=== PATIENT | female | born 1955 | race Caucasian/White ===

== ENCOUNTER → 2018-12-19 | Outpatient (CLI) | payer OTHER, BC ==
[~2018-12-19] MED LIST: APIX5TAB PO; FLEC100T PO; IBUP1TAB11 PO; METO25TA35 PO; METO25TA91 PO; OMNIPAQUE 350 MG/ML, 150 ML BOTTLE ONE
== END | disposition home or self-care (01) ==
LOC: CFH 12:37
PROVIDERS: ATTEND Internal Medicine Cardiovascular Disease
DX: I48.0 Paroxysmal atrial fibrillation (principal); Z79.899 Other long term (current) drug therapy
CPT/HCPCS: 71046; 75572; Q9967

== ENCOUNTER 2018-12-22 06:31 | Observation (INO) | payer OTHER, BC ==
[2018-12-19 14:21] VITALS: BP 119/80
[2018-12-19 14:49] LABS: BASOPHILS # (AUTO) 0.05 x10^3/uL (0-0.1); BASOPHILS % (AUTO) 1 % (0-1); EOSINOPHILS # (AUTO) 0.09 x10^3/uL (0-0.4); EOSINOPHILS % (AUTO) 2 % (1-7); LYMPHOCYTES % (AUTO) 25 % (22-44); MD NO; MEAN CORPUSCULAR HEMOGLOBIN 30.6 pg (27.0-34.8); MEAN CORPUSCULAR HGB CONC 33.9 g/dL (32.4-35.8); MEAN CORPUSCULAR VOLUME 90.3 fL (80-100); MEAN PLATELET VOLUME 8.1 fL (7.4-10.4); MONOCYTES # (AUTO) 0.32 x10^3/uL (0.2-0.8); MONOCYTES % (AUTO) 7 % (2-9); NEUTROPHILS % (AUTO) 66 % (42-75); PLATELET COUNT 259 x10^3/uL (130-400); RED BLOOD COUNT 4.66 x10^6/uL (3.82-5.3); RED CELL DISTRIBUTION WIDTH 13.3 % (9.6-15.2)
[2018-12-19 14:57] LABS: ALBUMIN 3.6 g/dL (3.4-5.0); ANION GAP 4 mmol/L (5-15); CALCIUM 8.7 mg/dL (8.5-10.1); CHLORIDE 110 mmol/L (98-107)
[2018-12-19 15:01] LABS: ALANINE AMINOTRANSFERASE 18 U/L (12-78); ALKALINE PHOSPHATASE 81 U/L (45-117); BILIRUBIN,TOTAL 0.7 mg/dL (0.2-1.0); CREATININE 1.03 mg/dL (0.55-1.02); TOTAL PROTEIN 6.7 g/dL (6.4-8.2)
[~2018-12-22] VITALS: Ht 175.3 cm; Wt 109.1 kg
[~2018-12-22 06:31] MED LIST changes: -APIX5TAB PO; -OMNIPAQUE 350 MG/ML, 150 ML BOTTLE ONE
[2018-12-22] MEDS ORDERED: SODIUM CHLORIDE 0.9% 1,000 ML IV SCH ×2 (06:48→07:00)
[2018-12-22] MEDS ORDERED: LIDOCAINE 1%, 20ML ONE (07:09)
[2018-12-22] MEDS ORDERED: FENTANYL PF 250 MCG/5ML ONE (08:43)
[2018-12-22] MEDS ORDERED: MIDAZOLAM 1 MG/ML, 2ML ONE (08:43)
[2018-12-22] MEDS ORDERED: ONDANSETRON 2MG/ML, 2ML ONE ×2 (08:46→16:10)
[2018-12-22] MEDS ORDERED: PROPOFOL 10 MG/ML, 20ML ONE (08:46)
[2018-12-22] MEDS ORDERED: DEXAMETHASONE 4 MG/ML, 5ML ONE (08:46)
[2018-12-22] MEDS ORDERED: SUCCINYLCHOLINE 20 MG/ML, 10ML ONE (08:47)
[2018-12-22] MEDS ORDERED: VASOPRESSIN 20 UNIT/ML, 1ML ONE (10:59)
[2018-12-22] MEDS ORDERED: ACETAMINOPHEN 325 MG TABLET PO PRN (13:00)
[2018-12-22] MEDS ORDERED: hydrALAzine 20 MG/ML, 1ML IV PRN (13:00)
[2018-12-22] MEDS ORDERED: MIDAZOLAM 1 MG/ML, 2ML IV PRN (13:00)
[2018-12-22] MEDS ORDERED: DIAZEPAM 5 MG/ML, 2ML IVPush PRN (13:00)
[2018-12-22] MEDS ORDERED: METOPROLOL SUCCINATE 25 MG TAB.ER.24H PO PRN (13:00)
[2018-12-22] MEDS ORDERED: MEPERIDINE/PF 25MG/0.5ML IVPush PRN (13:00)
[2018-12-22] MEDS ORDERED: EPHEDRINE 50 MG/ML, 1ML IVPush PRN (13:00)
[2018-12-22] MEDS ORDERED: ONDANSETRON ODT 8 MG PO PRN (13:00)
[2018-12-22] MEDS ORDERED: PROMETHAZINE 12.5 MG SUPP PR PRN (13:00)
[2018-12-22] MEDS ORDERED: ONDANSETRON 2MG/ML, 2ML IV PRN (13:00)
[2018-12-22] MEDS ORDERED: MORPHINE SULFATE 4 MG/ML, 1ML IVPush PRN (13:00)
[2018-12-22] MEDS ORDERED: HALOPERIDOL 5 MG/ML IV PRN (13:00)
[2018-12-22] MEDS ORDERED: LABETALOL 5MG/ML, 20ML IV PRN (13:00)
[2018-12-22] MEDS ORDERED: PROMETHAZINE 25 MG/ML, 1ML IV PRN (13:00)
[2018-12-22] MEDS ORDERED: OXYcodone 5 MG/5 ML ORAL.SOL UDC PO PRN (13:00)
[2018-12-22] MEDS ORDERED: ALBUTEROL SULFATE 2.5 MG/3 ML NPPB PRN (13:00)
[2018-12-22] MEDS ORDERED: FENTANYL PF 100 MCG/2ML ONE (13:23)
[2018-12-22] MEDS ORDERED: ACETAMINOPHEN 650 MG/20.3 ML UDC ONE (13:23)
[2018-12-22] MEDS ORDERED: OXYcodone 5 MG/5 ML ORAL.SOL UDC ONE (13:23)
[2018-12-22] MEDS: FENTANYL PF 100 MCG/2ML IV PRN ×2 (13:29→13:45)
[2018-12-22] MEDS: APIXABAN 5 MG TABLET PO SCH (13:45)
[2018-12-22] MEDS ORDERED: HYDROmorphone 1 MG/ML, 1ML AMP ONE (14:00)
[2018-12-22] MEDS: HYDROmorphone 2 MG/ML, 1ML IVPush PRN ×2 (14:02→14:10)
[2018-12-22] MEDS: ONDANSETRON 2MG/ML, 2ML IVPush PRN ×2 (16:16→20:25)
[2018-12-22 16:29] VITALS: BP 117/78
[2018-12-22 20:03] VITALS: BP 105/70
[2018-12-22] MEDS: ACETAMINOPHEN 325 MG TABLET PO PRN (20:28)
[2018-12-22 20:39] VITALS: BP 98/68
[2018-12-22] MEDS ORDERED: DIPHENHYDRAMINE 25 MG CAPSULE PO ONE (21:30)
[2018-12-23] MEDS: ACETAMINOPHEN 325 MG TABLET PO PRN ×3 (00:02→12:25)
[2018-12-23 00:55] VITALS: BP 100/62
[2018-12-23 06:34] VITALS: BP 93/69
[2018-12-23] MEDS: APIXABAN 5 MG TABLET PO SCH (08:03)
[2018-12-23] MEDS ORDERED: FLECAINIDE 100MG TABLET PO SCH (09:00)
[2018-12-23] MEDS ORDERED: APIX5TAB PO (09:39)
[2018-12-23 13:27] VITALS: BP 136/76
== END 2018-12-23 15:40 | disposition home or self-care (01) ==
LOC: CACL 06:31 → ORIP 12:44 → 5SO 16:14 → DCLOUNGE 12-23 15:21
PROVIDERS: ADMIT Internal Medicine Cardiovascular Disease; ATTEND Internal Medicine Cardiovascular Disease
DX: I48.91 Unspecified atrial fibrillation (principal); I48.92 Unspecified atrial flutter
CPT/HCPCS: 36415; 80053; 85025; 85347; 93308; 93312; 93321; 93325; 93613; 93655; 93656; 93662; 96374; 96376; C1730; C1732; C1759; C1766; C1893; C1894; G0378; J0330; J1100; J1170; J2250; J2405; J2704; J3010; J3490; Q0163

== ENCOUNTER 2018-12-24 11:47 | Inpatient (IN) | payer OTHER, BC ==
[~2018-12-24] VITALS: Ht 175.3 cm; Wt 112.0 kg
[~2018-12-24 11:47] MED LIST changes: +APIX5TAB PO
[2018-12-24 12:25] LABS: MEAN CORPUSCULAR HEMOGLOBIN 29.3 pg (27.0-34.8); MEAN CORPUSCULAR HGB CONC 32.4 g/dL (32.4-35.8); MEAN CORPUSCULAR VOLUME 90.4 fL (80-100); MEAN PLATELET VOLUME 8.4 fL (7.4-10.4); PLATELET COUNT 226 x10^3/uL (130-400); RED BLOOD COUNT 4.24 x10^6/uL (3.82-5.3); RED CELL DISTRIBUTION WIDTH 13.7 % (9.6-15.2)
[2018-12-24 12:29] LABS: INTERNATIONAL NORMALIZED RATIO 0.9 (0.93-1.1); PROTHROMBIN TIME 9.5 Seconds (9.6-11.5)
--- NOTE | 2018-12-24 12:29 | NUR ---
PT AMBULATORY TO ROOM FROM LOBBY.
[2018-12-24 12:31] LABS: ALBUMIN 3.4 g/dL (3.4-5.0); ANION GAP 6 mmol/L (5-15); CALCIUM 8.3 mg/dL (8.5-10.1); CHLORIDE 111 mmol/L (98-107)
[2018-12-24 12:36] LABS: ALANINE AMINOTRANSFERASE 72 U/L (12-78); ALKALINE PHOSPHATASE 82 U/L (45-117); BILIRUBIN,TOTAL 0.7 mg/dL (0.2-1.0); CREATININE 0.96 mg/dL (0.55-1.02); TOTAL PROTEIN 6.6 g/dL (6.4-8.2)
[2018-12-24] MEDS ORDERED: FUROSEMIDE 20 MG/2 ML ONE (12:57)
[2018-12-24] MEDS ORDERED: SODIUM CHLORIDE FLUSH 10ML SYR IVF ONE (13:00)
[2018-12-24] MEDS ORDERED: FUROSEMIDE 20 MG/2 ML IV ONE (13:00)
--- NOTE | 2018-12-24 13:24 | NUR ---
Pt ambulates with steady gait and balance to restroom with SBA of ED RN. QUEZADA. No defecits observed.
--- NOTE | 2018-12-24 13:41 | NUR ---
Pt transported to [facility].
--- NOTE | 2018-12-24 13:48 | NUR ---
Pt back to room from CT. NADN>
[2018-12-24 13:49] LABS: BASOPHILS # (AUTO) 0.01 x10^3/uL (0-0.1); BASOPHILS % (AUTO) 0 % (0-1); EOSINOPHILS # (AUTO) 0.03 x10^3/uL (0-0.4); EOSINOPHILS % (AUTO) 0 % (1-7); LYMPHOCYTES # (AUTO) 0.73 x10^3/uL (1-3.4); LYMPHOCYTES % (AUTO) 9 % (22-44); MD SCAN; MONOCYTES % (AUTO) 8 % (2-9); NEUTROPHILS # (AUTO) 7.03 x10^3/uL (1.8-6.8); NEUTROPHILS % (AUTO) 83 % (42-75)
[2018-12-24] MEDS ORDERED: ONDANSETRON ODT 4 MG PO PRN (15:00)
[2018-12-24] MEDS ORDERED: LIDODERM 5% PATCH TD PRN (15:00)
[2018-12-24] MEDS ORDERED: hydrALAzine 20 MG/ML, 1ML IVPush PRN (15:00)
[2018-12-24] MEDS ORDERED: BISACODYL 10 MG SUPP PR PRN (15:00)
[2018-12-24] MEDS ORDERED: GUAIFENESIN/DM 200-20MG, 10ML UDC PO PRN (15:00)
[2018-12-24] MEDS ORDERED: NITROGLYCERIN 0.4 MG BOTTLE (25 TABS) SL PRN (15:00)
[2018-12-24] MEDS ORDERED: DOCUSATE 100 MG CAPSULE PO PRN (15:00)
[2018-12-24] MEDS ORDERED: POLYETHYLENE GLYCOL 17 GM PACKET PO PRN (15:00)
[2018-12-24] MEDS ORDERED: NITROGLYCERIN 0.4 MG/SPRAY SL PRN (15:00)
[2018-12-24] MEDS ORDERED: ONDANSETRON 2MG/ML, 2ML IVPush PRN (15:00)
--- NOTE | 2018-12-24 15:05 | NUR ---
REPORT FROM MANOLO CASAREZ. PT SITTING UP IN [facility], NAD NOTED. RESPIRATIONS EVEN/UNLABORED. SPO2 >90% ON 2L BY NC. CARDIOLOGY MD AT BEDSIDE. BP/SPO2/ECG MONITORING IN PLACE. NSR ON MONITOR.
[2018-12-24 15:29] LABS: FREE T4 (FREE THYROXINE) 1.19 ng/dL (0.76-1.46)
[2018-12-24 15:35] LABS: THYROID STIMULATING HORMONE 0.862 mIU/L (0.358-3.740)
[2018-12-24 15:44] LABS: HEMOGLOBIN A1C 5.7 % (4.2-6.3)
--- NOTE | 2018-12-24 15:44 | NUR ---
MESSAGE LEFT FOR DR BLACK REGARDING REPEAT TROP. NO NEW ODERS RECEIVED AT THIS TIME.
--- NOTE | 2018-12-24 15:54 | NUR ---
HOSPITALIST AT BEDSIDE, AWARE OF TROP. NO NEW ORDERS RECEIVED. PT SITTING UP IN [facility], NAD; PWD. NSR NOTED ON MONITOR
[2018-12-24] MEDS ORDERED: ALBUTEROL/IPRATROPIUM 2.5MG/0.5MG, 3 ML NPPB PRN (16:30)
[2018-12-24] MEDS ORDERED: INDOMETHACIN ER 75 MG CAPSULE PO ONE ×2 (16:30→20:00)
--- NOTE | 2018-12-24 16:32 | NUR ---
PT AMBULATED STEADILY TO BATHROOM WITH DAUGHTER. PT DENIES INCREASE IN SOB/CP WITH ACTIVITY.
[2018-12-24] MEDS: ACETAMINOPHEN 325 MG TABLET PO PRN ×2 (16:45→16:49)
[2018-12-24] MEDS ORDERED: ACETAMINOPHEN 325 MG TABLET ONE (16:46)
--- NOTE | 2018-12-24 16:54 | NUR ---
PT NOW IN AFIB, HR 90-140. PT PWD; BP WNL. MESSAGE LEFT FOR CARDIOLOGY MD BLACK. AWAITING RETURN CALL/ORDERS Addendum: 12/24/18 at 1709 by LWEGENER REPEAT EKG COMPLETED BY TECH
--- NOTE | 2018-12-24 17:07 | NUR ---
VERBAL ORDER RECIEVED FROM DR BLACK TO GIVE PT DAILY DOSE OF FLECAINIDE PO NOW. VERBAL ORDER RECIEVED FOR METOPROLOL 12.5 MG PO QDAY. FLECAINIDE AND LIDO PATCH REQUESTED FROM PHARMACY
--- NOTE | 2018-12-24 17:40 | NUR ---
PHARMACY CALLED TO FOLLOW UP ON MEDICATION REQUEST. TECH STATES THAT SHE WILL "LOOK IN TUBE SYSTEM AND SEND MEDS"
--- NOTE | 2018-12-24 17:59 | NUR ---
REPORT TO MANOLO AGUIRRE. MANOLO AGUIRRE UPDATED TO CONVERSATION WITH [facility]. MEDICATION ARRIVED FROM PHARMACY, PT MEDICATED WITH FLECAINIDE NOW PER VERBAL ORDER FROM SOFIA
[2018-12-24] MEDS: FLECAINIDE 100MG TABLET PO SCH (18:03)
[2018-12-24 18:30] VITALS: BP 123/76
[2018-12-24 19:39] VITALS: BP 112/63
[2018-12-24] MEDS: APIXABAN 5 MG TABLET PO SCH (19:43)
[2018-12-24] MEDS ORDERED: METOPROLOL TARTRATE 25 MG TABLET PO SCH (21:00)
[2018-12-25 01:02] VITALS: BP 103/65
[2018-12-25] MEDS: KETOROLAC 30 MG/1 ML IV PRN ×2 (03:04→21:15)
[2018-12-25] MEDS: PANTOPROZOLE 40MG TABLET PO SCH (05:48)
[2018-12-25 06:17] LABS: BASOPHILS # (AUTO) 0.02 x10^3/uL (0-0.1); BASOPHILS % (AUTO) 0 % (0-1); EOSINOPHILS # (AUTO) 0.09 x10^3/uL (0-0.4); EOSINOPHILS % (AUTO) 2 % (1-7); LYMPHOCYTES # (AUTO) 1.11 x10^3/uL (1-3.4); LYMPHOCYTES % (AUTO) 20 % (22-44); MD NO; MEAN CORPUSCULAR HEMOGLOBIN 30.8 pg (27.0-34.8); MEAN CORPUSCULAR HGB CONC 34.3 g/dL (32.4-35.8); MEAN CORPUSCULAR VOLUME 89.7 fL (80-100); MEAN PLATELET VOLUME 8.4 fL (7.4-10.4); MONOCYTES % (AUTO) 11 % (2-9); NEUTROPHILS # (AUTO) 3.62 x10^3/uL (1.8-6.8); NEUTROPHILS % (AUTO) 67 % (42-75); PLATELET COUNT 174 x10^3/uL (130-400); RED BLOOD COUNT 3.79 x10^6/uL (3.82-5.3); RED CELL DISTRIBUTION WIDTH 13.7 % (9.6-15.2)
[2018-12-25 06:27] LABS: ANION GAP 6 mmol/L (5-15); CALCIUM 8.4 mg/dL (8.5-10.1); CHLORIDE 109 mmol/L (98-107)
[2018-12-25 06:31] LABS: CHOL/HDL RATIO 2.3; CHOLESTEROL, TOTAL 144 mg/dL (140-239); CREATININE 0.84 mg/dL (0.55-1.02); HDL CHOL % 43 % (28-40); HDL CHOLESTEROL (DIRECT) 62 mg/dL (40-60); LDL CHOLESTEROL,CALCULATED 69 mg/dL (54-169); LDL/HDL RATIO 1.1 (0.5-3.0); TRIGLYCERIDES 64 mg/dL (50-200); VLDL CHOLESTEROL 13 mg/dL (0-25)
[2018-12-25 07:26] VITALS: BP 126/76
[2018-12-25] MEDS ORDERED: METOPROLOL TARTRATE 25 MG TABLET PO SCH ×2 (09:00→21:00)
[2018-12-25] MEDS ORDERED: FLECAINIDE 100MG TABLET PO SCH (09:00)
[2018-12-25] MEDS: APIXABAN 5 MG TABLET PO SCH ×2 (09:32→20:51)
[2018-12-25] MEDS: INDOMETHACIN ER 75 MG CAPSULE PO SCH (11:04)
[2018-12-25 12:25] VITALS: BP 143/82
[2018-12-25] MEDS: LIDODERM 5% PATCH TD SCH (14:20)
[2018-12-25] MEDS ORDERED: DILTIAZEM 5 MG/ML, 5ML IVPush ONE (19:00)
[2018-12-25 20:00] VITALS: BP 162/77
[2018-12-25] MEDS ORDERED: DILTIAZEM 5 MG/ML, 5ML IVPush PRN (20:00)
[2018-12-25 20:49] VITALS: BP 144/85
[2018-12-25] MEDS: METOPROLOL TARTRATE 25 MG TABLET PO SCH (20:51)
[2018-12-25] MEDS: FLECAINIDE 100MG TABLET PO SCH (20:51)
[2018-12-25] MEDS: DIPHENHYDRAMINE 25 MG CAPSULE PO PRN (22:03)
[2018-12-26 01:27] VITALS: BP 109/69
[2018-12-26 06:10] VITALS: BP 125/66
[2018-12-26] MEDS: PANTOPROZOLE 40MG TABLET PO SCH (06:11)
[2018-12-26] MEDS: METOPROLOL TARTRATE 25 MG TABLET PO SCH ×2 (06:11→18:34)
[2018-12-26 07:35] VITALS: BP 113/69
[2018-12-26] MEDS: APIXABAN 5 MG TABLET PO SCH ×2 (08:11→21:30)
[2018-12-26] MEDS: INDOMETHACIN ER 75 MG CAPSULE PO SCH (08:11)
[2018-12-26 14:00] VITALS: BP 102/58
[2018-12-26] MEDS: LIDODERM 5% PATCH TD SCH (15:05)
[2018-12-26 20:01] VITALS: BP 130/80
[2018-12-26] MEDS: FLECAINIDE 100MG TABLET PO SCH (21:30)
[2018-12-26] MEDS: DIPHENHYDRAMINE 25 MG CAPSULE PO PRN (21:35)
[2018-12-27 02:28] VITALS: BP 107/77
[2018-12-27] MEDS: PANTOPROZOLE 40MG TABLET PO SCH (06:31)
[2018-12-27] MEDS: APIXABAN 5 MG TABLET PO SCH (10:47)
[2018-12-27] MEDS: INDOMETHACIN ER 75 MG CAPSULE PO SCH (10:47)
[2018-12-27] MEDS: METOPROLOL TARTRATE 25 MG TABLET PO SCH (10:48)
[2018-12-27] MEDS ORDERED: METO25TA35 PO (12:22)
[2018-12-27] MEDS ORDERED: LIDO700A20 TD (12:22)
[2018-12-27] MEDS ORDERED: INDO75CA3 PO (12:22)
== END 2018-12-27 13:10 | disposition home or self-care (01) | DRG 314 ==
LOC: ED 12:56 → EDIP 14:16 → 5SO 17:54 → DCLOUNGE 12-27 13:10
PROVIDERS: ADMIT Internal Medicine; ATTEND Internal Medicine
DX: I30.9 Acute pericarditis, unspecified (principal); J96.01 Acute respiratory failure with hypoxia; J90 Pleural effusion, not elsewhere classified; J98.11 Atelectasis; I48.0 Paroxysmal atrial fibrillation; Z79.01 Long term (current) use of anticoagulants; Z80.3 Family history of malignant neoplasm of breast; Z82.5 Family history of asthma and other chronic lower respiratory diseases; Z87.891 Personal history of nicotine dependence; Z87.01 Personal history of pneumonia (recurrent); I25.2 Old myocardial infarction; Z90.710 Acquired absence of both cervix and uterus; Z91.048 Other nonmedicinal substance allergy status; Z82.49 Family history of ischemic heart disease and other diseases of the circulatory system
CPT/HCPCS: 36415; 71045; 71275; 80048; 80053; 80061; 83036; 83605; 83880; 84145; 84439; 84443; 84484; 85025; 85610; 85730; 87040; 87205; 93005; 93308; 93321; 93325; 94667; 96374; 99285; G0378; J1885; J1940; Q0163

== ENCOUNTER 2020-04-10 19:48 | Emergency (ER) | payer BC ==
[~2020-04-10] VITALS: Ht 175.3 cm; Wt 109.4 kg
[~2020-04-10 19:48] MED LIST changes: +INDO75CA3 PO; +LIDO700A20 TD
[2020-04-10 19:51] VITALS: BP 123/87
--- NOTE | 2020-04-10 20:16 | NUR ---
C/O OF AFIB HR of 194 until 1900 when she took a beta milvia, c/o light headedness and dizziness. Placed cardiac and vitals monitors, iv started.
[2020-04-10 20:24] LABS: BASOPHILS # (AUTO) 0.03 x10^3/uL (0-0.1); BASOPHILS % (AUTO) 0 % (0-1); EOSINOPHILS # (AUTO) 0.13 x10^3/uL (0-0.4); EOSINOPHILS % (AUTO) 2 % (1-7); LYMPHOCYTES # (AUTO) 1.76 x10^3/uL (1-3.4); LYMPHOCYTES % (AUTO) 24 % (22-44); MD NO; MEAN CORPUSCULAR HEMOGLOBIN 30.6 pg (27.0-34.8); MEAN CORPUSCULAR HGB CONC 33.1 g/dL (32.4-35.8); MEAN CORPUSCULAR VOLUME 92.4 fL (80-100); MEAN PLATELET VOLUME 8.4 fL (7.4-10.4); MONOCYTES # (AUTO) 0.63 x10^3/uL (0.2-0.8); MONOCYTES % (AUTO) 9 % (2-9); NEUTROPHILS % (AUTO) 65 % (42-75); PLATELET COUNT 284 x10^3/uL (130-400)
[2020-04-10] MEDS ORDERED: PROPOFOL 10 MG/ML, 20ML ONE (20:25)
[2020-04-10] MEDS ORDERED: PROPOFOL 10 MG/ML, 20ML IVPush ONE (20:30)
[2020-04-10] MEDS ORDERED: SODIUM CHLORIDE FLUSH 10ML SYR IVF ONE (20:30)
[2020-04-10 20:32] LABS: ALANINE AMINOTRANSFERASE 25 U/L (12-78); ALBUMIN 3.5 g/dL (3.4-5.0); ANION GAP 7 mmol/L (5-15); CALCIUM 8.2 mg/dL (8.5-10.1); CHLORIDE 110 mmol/L (98-107); CREATININE 1.09 mg/dL (0.55-1.02)
[2020-04-10 20:37] LABS: ALKALINE PHOSPHATASE 87 U/L (45-117); BILIRUBIN,TOTAL 0.4 mg/dL (0.2-1.0); TOTAL PROTEIN 7.1 g/dL (6.4-8.2); TROPONIN I 0.035 ng/mL (0.000-0.045)
--- NOTE | 2020-04-10 20:54 | NUR ---
TOWERMAN: ASSISTED PRIMARY RN WITH PROCEDURAL SEDATION, PT TIME OUT AT 2039, ALL RIGHTS VERIFIED. PT RECIEVED 75MG OF DIPRIVAN AND WAS SEDATED SAFELY WITH ALL SAFETY EQUIPMENT AVAILBLE. PT 10 MINUTES POST PROCEDURE TOLERATING WELL AND AWAKE SPEAKING IN FULL SENTANCES. PT DID RECIEVE SOME CHIN CHEEK PRESSURE TO TRANSITON OUT OF SEDATION. PRIMARY RN COMPLETING PROCEDURAL SEDATION DOCUMENTATION.
--- NOTE | 2020-04-10 21:38 | NUR ---
PT ABLE TO STAND ON HER OWN, DENIES DIZZINESS OR LIGHTHEADED. PT'S DAUGHTER AT BEDSIDE WHILE PATIENT GETS DRESSED FOR DISCHARGE.
--- NOTE | 2020-04-10 21:45 | NUR ---
SEE CARDI[facility]ERSION PROCEDURE DOCUMENTATION FOR VITALS AND MONITORING.
== END 2020-04-10 21:48 | disposition home or self-care (01) ==
LOC: ED 20:18
DX: I48.0 Paroxysmal atrial fibrillation (principal); R00.0 Tachycardia, unspecified
CPT/HCPCS: 36415; 71045; 80053; 83735; 84484; 85025; 92960; 99291

== ENCOUNTER 2020-12-30 05:56 | Inpatient (IN) | payer BC ==
[~2020-12-30] VITALS: Ht 175.3 cm; Wt 114.6 kg
[2020-12-30] MEDS ORDERED: SODIUM CHLORIDE 0.9% 1,000 ML IV SCH ×2 (06:30)
[2020-12-30] MEDS ORDERED: METO25TA35 PO (06:42)
[2020-12-30] MEDS ORDERED: VALA500T4 PO (06:42)
[2020-12-30 07:13] LABS: BASOPHILS % (AUTO) 1 % (0-1); EOSINOPHILS % (AUTO) 2 % (1-7); LYMPHOCYTES % (AUTO) 22 % (22-44); MEAN CORPUSCULAR HEMOGLOBIN 29.7 pg (27.0-34.8); MEAN CORPUSCULAR HGB CONC 33.1 g/dL (32.4-35.8); MEAN PLATELET VOLUME 8.4 fL (7.4-10.4); MONOCYTES % (AUTO) 10 % (2-9); NEUTROPHILS % (AUTO) 65 % (42-75); PLATELET COUNT 254 x10^3/uL (130-400); RED BLOOD COUNT 4.66 x10^6/uL (3.82-5.3); RED CELL DISTRIBUTION WIDTH 13.5 % (9.6-15.2)
[2020-12-30 07:14] LABS: MD NO
[2020-12-30 07:22] LABS: ANION GAP 6 mmol/L (5-15); CALCIUM 9.3 mg/dL (8.5-10.1); CHLORIDE 110 mmol/L (98-107); CREATININE 0.95 mg/dL (0.55-1.02)
[2020-12-30] MEDS ORDERED: GLYCOPYRROLATE 0.2MG/1ML, 5ML ONE (08:02)
[2020-12-30] MEDS ORDERED: FENTANYL PF 250 MCG/5ML ONE (08:03)
[2020-12-30] MEDS ORDERED: MIDAZOLAM 1 MG/ML, 2ML ONE (08:03)
[2020-12-30] MEDS ORDERED: LIDOCAINE 2%, 20ML ONE (08:10)
[2020-12-30] MEDS ORDERED: PROPOFOL 10 MG/ML, 20ML ONE (08:33)
[2020-12-30] MEDS ORDERED: LIDOCAINE-MPF 2% ,5ML ONE (08:33)
[2020-12-30] MEDS ORDERED: ROCURONIUM 10MG/ML,5ML ONE (08:33)
[2020-12-30] MEDS ORDERED: DEXAMETHASONE 4 MG/ML, 1ML ONE ×2 (08:33)
[2020-12-30] MEDS ORDERED: PHENYLEPHRINE 10 MG/ML ONE (08:36)
[2020-12-30] MEDS ORDERED: EPHEDRINE 50 MG/ML, 1ML ONE (08:51)
[2020-12-30] MEDS ORDERED: HEPARIN 1,000 UNITS/ML, 10ML ONE (09:09)
[2020-12-30] MEDS ORDERED: NEOSTIGMINE 1 MG/ML, 10ML ONE (10:06)
[2020-12-30] MEDS ORDERED: ONDANSETRON 2MG/ML, 2ML ONE (10:06)
[2020-12-30] MEDS ORDERED: hydrALAzine 20 MG/ML, 1ML IV PRN (10:30)
[2020-12-30] MEDS ORDERED: DIPHENHYDRAMINE 50 MG/ML, 1ML IVPush PRN ×2 (10:30)
[2020-12-30] MEDS ORDERED: MIDAZOLAM 1 MG/ML, 2ML IV PRN (10:30)
[2020-12-30] MEDS ORDERED: ACETAMINOPHEN 325 MG TABLET PO PRN ×2 (10:30)
[2020-12-30] MEDS ORDERED: HYDROmorphone 1 MG/ML, 1ML INJ IVPush PRN (10:30)
[2020-12-30] MEDS ORDERED: LABETALOL 5MG/ML, 20ML IV PRN (10:30)
[2020-12-30] MEDS ORDERED: IBUPROFEN PO PRN (10:30)
[2020-12-30] MEDS ORDERED: OXYcodone 5 MG/5 ML ORAL.SOL UDC PO PRN (10:30)
[2020-12-30] MEDS ORDERED: DIPHENHYDRAMINE CIT PO PRN (10:30)
[2020-12-30] MEDS ORDERED: ONDANSETRON 2MG/ML, 2ML IVPush PRN (10:30)
[2020-12-30] MEDS ORDERED: VALACYCLOVIR 500MG TABLET PO PRN (10:30)
[2020-12-30] MEDS ORDERED: PROMETHAZINE 12.5 MG SUPP PR PRN (10:30)
[2020-12-30] MEDS ORDERED: ALBUTEROL SULFATE 2.5 MG/3 ML NPPB PRN (10:30)
[2020-12-30] MEDS ORDERED: MEPERIDINE/PF 25MG/0.5ML IVPush PRN (10:30)
[2020-12-30] MEDS ORDERED: EPHEDRINE 50 MG/ML, 1ML IVPush PRN (10:30)
[2020-12-30] MEDS ORDERED: FENTANYL PF 100 MCG/2ML IV PRN (10:30)
[2020-12-30] MEDS ORDERED: DIAZEPAM 5 MG/ML, 2ML IVPush PRN (10:30)
[2020-12-30] MEDS ORDERED: APIXABAN 5 MG TABLET PO SCH (10:30)
[2020-12-30] MEDS ORDERED: PROMETHAZINE 25 MG/ML, 1ML IVPush PRN (10:30)
[2020-12-30] MEDS ORDERED: ACETAMINOPHEN 650 MG/20.3 ML UDC ONE (10:59)
[2020-12-30] MEDS ORDERED: APIXABAN 5 MG TABLET ONE (11:00)
[2020-12-30] MEDS: APIXABAN 5 MG TABLET PO SCH ×2 (12:30→20:30)
[2020-12-30] MEDS ORDERED: MORPHINE SULFATE 4 MG/ML, 1ML ONE (14:55)
[2020-12-30] MEDS: MORPHINE SULFATE 4 MG/ML, 1ML IVPush PRN (15:01)
[2020-12-30 15:30] VITALS: BP 111/72
[2020-12-30 18:55] VITALS: BP 108/68
[2020-12-30] MEDS: COLCHICINE 0.6 MG CAPSULE PO SCH (20:29)
[2020-12-30] MEDS: ZOLPIDEM 5MG TABLET PO PRN (20:30)
[2020-12-30] MEDS: HYDROcodone/APAP 5/325 TABLET PO PRN (20:30)
[2020-12-31 01:01] VITALS: BP 109/70
[2020-12-31] MEDS: HYDROcodone/APAP 5/325 TABLET PO PRN ×2 (01:18→20:00)
[2020-12-31] MEDS: MORPHINE SULFATE 4 MG/ML, 1ML IVPush PRN (04:43)
[2020-12-31 08:06] VITALS: BP 121/73
[2020-12-31] MEDS ORDERED: IBUPROFEN 600 MG TABLET ONE (08:51)
[2020-12-31] MEDS: COLCHICINE 0.6 MG CAPSULE PO SCH ×2 (08:56→20:00)
[2020-12-31] MEDS: APIXABAN 5 MG TABLET PO SCH ×2 (08:56→19:59)
[2020-12-31] MEDS: FLECAINIDE 100MG TABLET PO SCH (08:57)
[2020-12-31] MEDS: METOPROLOL TARTRATE 25 MG TAB PO SCH (08:57)
[2020-12-31] MEDS ORDERED: IBUPROFEN 600 MG TABLET PO PRN (09:00)
[2020-12-31] MEDS ORDERED: IBUPROFEN 600 MG TABLET PO SCH (10:30)
[2020-12-31] MEDS: ONDANSETRON 2MG/ML, 2ML IVPush PRN ×2 (13:10→20:00)
[2020-12-31 15:28] VITALS: BP 110/75
[2020-12-31] MEDS: ZOLPIDEM 5MG TABLET PO PRN (19:59)
[2020-12-31] MEDS: IBUPROFEN 600 MG TABLET PO SCH (19:59)
[2020-12-31 20:00] VITALS: BP 127/75
[2021-01-01 01:34] VITALS: BP 118/73
[2021-01-01] MEDS: HYDROcodone/APAP 5/325 TABLET PO PRN ×2 (04:25→21:30)
[2021-01-01 07:13] VITALS: BP 122/80
[2021-01-01] MEDS: ONDANSETRON 2MG/ML, 2ML IVPush PRN ×2 (08:41→15:12)
[2021-01-01] MEDS: APIXABAN 5 MG TABLET PO SCH ×2 (08:43→21:13)
[2021-01-01] MEDS: COLCHICINE 0.6 MG CAPSULE PO SCH ×2 (08:43→21:13)
[2021-01-01] MEDS: IBUPROFEN 600 MG TABLET PO SCH ×3 (08:44→21:13)
[2021-01-01] MEDS: FLECAINIDE 100MG TABLET PO SCH (08:44)
[2021-01-01] MEDS: METOPROLOL TARTRATE 25 MG TAB PO SCH (08:44)
[2021-01-01] MEDS ORDERED: KETOROLAC 30 MG/1 ML IVPush ONE ×2 (09:00→16:00)
[2021-01-01 13:07] VITALS: BP 103/70
[2021-01-01] MEDS ORDERED: KETOROLAC 30 MG/1 ML IM ONE (15:00)
[2021-01-01] MEDS ORDERED: IBUPROFEN 600 MG TABLET PO SCH ×2 (16:00→21:00)
[2021-01-01] MEDS ORDERED: DOCUSATE 100 MG CAPSULE PO PRN (16:00)
[2021-01-01] MEDS ORDERED: POLYETHYLENE GLYCOL 17 GM PACKET PO PRN (16:00)
[2021-01-01 18:38] VITALS: BP 110/69
[2021-01-01] MEDS: ZOLPIDEM 5MG TABLET PO PRN (21:14)
[2021-01-02 01:25] VITALS: BP 106/70
[2021-01-02 07:19] VITALS: BP 116/73
[2021-01-02] MEDS ORDERED: IBUPROFEN 200 MG TABLET ONE ×2 (07:57→16:36)
[2021-01-02] MEDS: IBUPROFEN 600 MG TABLET PO SCH ×3 (08:14→20:53)
[2021-01-02] MEDS: APIXABAN 5 MG TABLET PO SCH ×2 (08:15→20:52)
[2021-01-02] MEDS: FLECAINIDE 100MG TABLET PO SCH (08:15)
[2021-01-02] MEDS: HYDROcodone/APAP 5/325 TABLET PO PRN ×3 (08:16→20:54)
[2021-01-02] MEDS: METOPROLOL TARTRATE 25 MG TAB PO SCH (08:17)
[2021-01-02] MEDS: COLCHICINE 0.6 MG CAPSULE PO SCH ×2 (08:17→20:52)
[2021-01-02 12:19] VITALS: BP 105/67
[2021-01-02] MEDS: CALCIUM CARBONATE 500 MG TAB.CHEW PO PRN (16:39)
[2021-01-02] MEDS: ZOLPIDEM 5MG TABLET PO PRN (20:53)
[2021-01-02 20:58] VITALS: BP 106/70
[2021-01-03] MEDS: HYDROcodone/APAP 5/325 TABLET PO PRN ×2 (01:09→05:20)
[2021-01-03] MEDS: ZOLPIDEM 5MG TABLET PO PRN ×2 (01:09→20:53)
[2021-01-03 01:14] VITALS: BP 116/74
[2021-01-03] MEDS: CALCIUM CARBONATE 500 MG TAB.CHEW PO PRN (05:20)
[2021-01-03 05:38] LABS: BASOPHILS % (AUTO) 1 % (0-1); EOSINOPHILS % (AUTO) 4 % (1-7); LYMPHOCYTES % (AUTO) 31 % (22-44); MEAN CORPUSCULAR HEMOGLOBIN 30.2 pg (27.0-34.8); MEAN CORPUSCULAR HGB CONC 33.1 g/dL (32.4-35.8); MEAN PLATELET VOLUME 8.5 fL (7.4-10.4); MONOCYTES % (AUTO) 12 % (2-9); NEUTROPHILS % (AUTO) 53 % (42-75); PLATELET COUNT 167 x10^3/uL (130-400); RED BLOOD COUNT 3.72 x10^6/uL (3.82-5.3); RED CELL DISTRIBUTION WIDTH 13.2 % (9.6-15.2)
[2021-01-03 05:42] LABS: MD NO
[2021-01-03 05:52] LABS: ALBUMIN 2.9 g/dL (3.4-5.0); CALCIUM 8.4 mg/dL (8.5-10.1)
[2021-01-03 05:55] LABS: ALANINE AMINOTRANSFERASE 44 U/L (12-78); ALKALINE PHOSPHATASE 96 U/L (45-117); BILIRUBIN,TOTAL 0.4 mg/dL (0.2-1.0); CREATININE 0.95 mg/dL (0.55-1.02)
[2021-01-03 06:01] LABS: ANION GAP 4 mmol/L (5-15); CHLORIDE 107 mmol/L (98-107)
[2021-01-03 06:58] VITALS: BP 122/77
[2021-01-03] MEDS: FLECAINIDE 100MG TABLET PO SCH (08:21)
[2021-01-03] MEDS: APIXABAN 5 MG TABLET PO SCH ×2 (08:21→20:44)
[2021-01-03] MEDS: COLCHICINE 0.6 MG CAPSULE PO SCH ×2 (08:21→20:44)
[2021-01-03] MEDS: IBUPROFEN 600 MG TABLET PO SCH ×3 (08:22→20:44)
[2021-01-03] MEDS: METOPROLOL TARTRATE 25 MG TAB PO SCH (08:22)
[2021-01-03] MEDS: KETOROLAC 30 MG/1 ML IVPush SCH ×3 (10:17→20:45)
[2021-01-03 13:24] VITALS: BP 119/75
[2021-01-03] MEDS ORDERED: OMNIPAQUE 350 MG/ML, 75ML BOTTLE ONE (15:21)
[2021-01-03 18:56] VITALS: BP 121/77
[2021-01-04 02:31] VITALS: BP 154/86
[2021-01-04] MEDS: KETOROLAC 30 MG/1 ML IVPush SCH ×4 (02:31→20:37)
[2021-01-04 07:05] VITALS: BP 120/73
[2021-01-04] MEDS: COLCHICINE 0.6 MG CAPSULE PO SCH ×2 (08:02→20:38)
[2021-01-04] MEDS: IBUPROFEN 600 MG TABLET PO SCH ×3 (08:03→20:38)
[2021-01-04] MEDS: FLECAINIDE 100MG TABLET PO SCH (08:03)
[2021-01-04] MEDS: APIXABAN 5 MG TABLET PO SCH ×2 (08:03→20:38)
[2021-01-04 15:00] VITALS: BP 168/77
[2021-01-04 19:07] VITALS: BP 130/78
[2021-01-04] MEDS: ZOLPIDEM 5MG TABLET PO PRN (20:38)
[2021-01-05] MEDS: IBUPROFEN 600 MG TABLET PO SCH ×2 (00:46→09:06)
[2021-01-05] MEDS: ZOLPIDEM 5MG TABLET PO PRN (00:46)
[2021-01-05 01:14] VITALS: BP 149/77
[2021-01-05] MEDS: KETOROLAC 30 MG/1 ML IVPush SCH ×2 (03:00→09:06)
[2021-01-05 07:45] VITALS: BP 135/78
[2021-01-05] MEDS: APIXABAN 5 MG TABLET PO SCH (09:05)
[2021-01-05] MEDS: COLCHICINE 0.6 MG CAPSULE PO SCH (09:05)
[2021-01-05] MEDS: FLECAINIDE 100MG TABLET PO SCH (09:06)
[2021-01-05] MEDS ORDERED: COLC0.6C3 PO (10:16)
== END 2021-01-05 11:26 | disposition home or self-care (01) | DRG 274 ==
LOC: CACL 05:56 → ORIP 10:15 → 5SO 11:50 → OBSVTOIN 01-01 10:38 → DCLOUNGE 01-05 11:18
PROVIDERS: ADMIT Internal Medicine Cardiovascular Disease; ATTEND Internal Medicine Cardiovascular Disease
PROC: 02563ZZ Destruction of Right Atrium, Percutaneous Approach (ICD-10-PCS; 2020-12-30)
PROC: 4A0234Z Measurement of Cardiac Electrical Activity, Percutaneous Approach (ICD-10-PCS; 2020-12-30)
PROC: 02K83ZZ Map Conduction Mechanism, Percutaneous Approach (ICD-10-PCS; 2020-12-30)
PROC: B246ZZZ Ultrasonography of Right and Left Heart (ICD-10-PCS; 2020-12-30)
PROC: 02573ZZ Destruction of Left Atrium, Percutaneous Approach (ICD-10-PCS; principal; 2020-12-30 08:00)
DX: I48.91 Unspecified atrial fibrillation (principal); I30.9 Acute pericarditis, unspecified; D68.69 Other thrombophilia; I48.3 Typical atrial flutter; R09.02 Hypoxemia
CPT/HCPCS: 36415; 93613; 93655; 93656; 93657; 93662; J3490; 71046; 71275; 80048; 80053; 85025; 85347; 93005; 93306; 93308; 93312; 93321; 93325; C1732; C1766; C1893; C1894; G0378; J1100; J1644; J1885; J2250; J2405; J2704; J2710; J3010; Q9967; C1730; C1759; J2270; J2370; U0003